=== PATIENT | male | born 1965 | race Caucasian/White ===

== ENCOUNTER 2021-03-03 05:05 | Emergency (ER) | payer OTHER | END 2021-03-03 08:30 | disposition home or self-care (01) | LOC: ER1 05:05 | DX: S01.01XA Laceration without foreign body of scalp, initial encounter (principal); F17.200 Nicotine dependence, unspecified, uncomplicated; W22.8XXA Striking against or struck by other objects, initial encounter; Y92.009 Unspecified place in unspecified non-institutional (private) residence as the place of occurrence of the external cause | CPT/HCPCS: 12002; 70450; 90471; 90715; 99283 ==

== ENCOUNTER 2021-09-14 21:24 | Emergency (ER) | payer OTHER | END 2021-09-14 23:30 | disposition home or self-care (01) | LOC: ER1 21:24 | DX: U07.1 COVID-19 (principal); F17.200 Nicotine dependence, unspecified, uncomplicated | CPT/HCPCS: 0240U; 99283 ==